=== PATIENT | male | born 2000 | race Caucasian/White ===

== ENCOUNTER 2021-06-21 14:29 | Outpatient (CLI) | payer BC | END 2021-06-21 14:30 | disposition home or self-care (01) | LOC: CTENTCT 14:29 | PROVIDERS: ATTEND Specialist | DX: J34.2 Deviated nasal septum (principal) | CPT/HCPCS: 70486 ==

== ENCOUNTER 2021-07-17 08:58 | Outpatient (CLI) | payer BC ==
[2021-07-17 17:37] LABS: SARS-CoV-2 PCR by NAA Not Detected (NotDetected)
== END 2021-07-17 08:59 | disposition home or self-care (01) ==
LOC: LABBT 08:58
PROVIDERS: ATTEND Specialist
DX: Z01.812 Encounter for preprocedural laboratory examination (principal); Z20.822 Contact with and (suspected) exposure to COVID-19
CPT/HCPCS: U0003; U0005

== ENCOUNTER 2021-07-20 07:28 | Day surgery (SDC) | payer BC ==
[2021-07-20] MEDS ORDERED: Oxymetazoline HCl 0.05% (30 ML BOT) ONE (07:51)
[2021-07-20] MEDS ORDERED: Fentanyl 250 MCG/5 ML VIAL ONE (08:40)
[2021-07-20] MEDS ORDERED: Midazolam HCl 2 mg/2 ml Vial ONE (09:22)
[2021-07-20] MEDS ORDERED: Ketorolac Tromethamine 30 MG/ML VIAL ONE (10:11)
[2021-07-20] MEDS ORDERED: Lidocaine 1% PF 5 ML VIAL ONE (10:11)
[2021-07-20] MEDS ORDERED: Glycopyrrolate 0.2 MG/ML 5 ML SYRINGE ONE (10:11)
[2021-07-20] MEDS ORDERED: PROPOFOL 200 MG/20 ML VIAL ONE (10:11)
[2021-07-20] MEDS ORDERED: ePHEDrine 50 MG/ML VIAL ONE (10:11)
[2021-07-20] MEDS ORDERED: Dexamethasone 20 MG/5 ML VIAL ONE (10:11)
[2021-07-20] MEDS ORDERED: Rocuronium Bromide 10 MG/ML (10ML VIAL) ONE (10:11)
[2021-07-20] MEDS ORDERED: Ondansetron PF 4 MG/2 ML Vial ONE (10:11)
[2021-07-20] MEDS ORDERED: Triamcinolone 40 MG/ML VIAL ONE (10:46)
[2021-07-20] MEDS ORDERED: Lidocaine 1% w/Epinephrine 1:100K 20 ML VIAL ONE (11:15)
[2021-07-20] MEDS ORDERED: Bacitracin Zinc Ointment 30 gm TUBE ONE (11:15)
[2021-07-20] MEDS ORDERED: EPINEPHrine 1 MG/ML AMP ONE (11:16)
== END 2021-07-20 12:48 | disposition home or self-care (01) ==
LOC: SDC 07:28
PROVIDERS: ATTEND Specialist
PROC: 8E09XBZ Computer Assisted Procedure of Head and Neck Region (ICD-10-PCS; principal; 2021-07-20)
PROC: 09BW8ZZ Excision of Right Sphenoid Sinus, Via Natural or Artificial Opening Endoscopic (ICD-10-PCS; principal; 2021-07-20)
PROC: 09BT8ZZ Excision of Left Frontal Sinus, Via Natural or Artificial Opening Endoscopic (ICD-10-PCS; principal; 2021-07-20)
PROC: 09BV8ZZ Excision of Left Ethmoid Sinus, Via Natural or Artificial Opening Endoscopic (ICD-10-PCS; principal; 2021-07-20)
PROC: 099R8ZZ Drainage of Left Maxillary Sinus, Via Natural or Artificial Opening Endoscopic (ICD-10-PCS; principal; 2021-07-20)
PROC: 09BL8ZZ Excision of Nasal Turbinate, Via Natural or Artificial Opening Endoscopic (ICD-10-PCS; principal; 2021-07-20)
PROC: 09SM4ZZ Reposition Nasal Septum, Percutaneous Endoscopic Approach (ICD-10-PCS; principal; 2021-07-20)
PROC: 09BU8ZZ Excision of Right Ethmoid Sinus, Via Natural or Artificial Opening Endoscopic (ICD-10-PCS; principal; 2021-07-20)
PROC: 09BS8ZZ Excision of Right Frontal Sinus, Via Natural or Artificial Opening Endoscopic (ICD-10-PCS; principal; 2021-07-20)
PROC: 099Q8ZZ Drainage of Right Maxillary Sinus, Via Natural or Artificial Opening Endoscopic (ICD-10-PCS; principal; 2021-07-20)
PROC: 09BX8ZZ Excision of Left Sphenoid Sinus, Via Natural or Artificial Opening Endoscopic (ICD-10-PCS; principal; 2021-07-20)
DX: J32.4 Chronic pansinusitis (principal); J34.2 Deviated nasal septum; J34.3 Hypertrophy of nasal turbinates; J33.0 Polyp of nasal cavity; J34.89 Other specified disorders of nose and nasal sinuses; Z79.899 Other long term (current) drug therapy; Z88.1 Allergy status to other antibiotic agents; Z91.010 Allergy to peanuts; Z91.012 Allergy to eggs; Z91.013 Allergy to seafood; Z91.018 Allergy to other foods; Z86.16 Personal history of COVID-19
CPT/HCPCS: J0171; J1100; J1885; J2250; J2405; J2704; J3010; J3301; J3490